=== PATIENT | male | born 1955 | race Caucasian/White ===

== ENCOUNTER → 2016-10-22 | Outpatient (CLI) | payer OTHER ==
[~2016-10-22] MED LIST: ASPIRIN81 M2 PO; ATORVASTATIN CA10 MG PO; BENICAR PO; CALCIUM1 TAB.CHEW PO; ELIDEL100 GM TOP; HYTRIN PO; MULTI-VITAMIN1 EAC1 PO; NAFTIN45 G1 TOP; OMEPRAZOLE20 M1 PO; PROBIOTIC1 EAC1 PO; RELAFEN PO; SYNTHROID PO; TOBRADEX EYE DRO5 ML OP; VITAMIN D250000 UNIT PO; ZYRTEC10 M1 PO
--- NOTE | ~2016-10-22 | XA30 ---
[facility] A Service of [facility] [place] [facility] RADIOLOGY TEXT RESULTS PATIENT: FABIO BAZAN LOCATION: [facility] : 55 UNIT #: [id number] AGE: [address]: Saeed Villarreal MD SEX: M ORDER DR: [id number] [facility] [address]. [place], [place] [address] [id number] O MR#: [id number] Acc #: [id number] NAME: FABIO BAZAN. : 1955 SEX: M STUDY DATE/TIME: 10/22/2016 13:12 UNIT: [facility] ROOM: STUDY DESCRIPTION: XA Arthrocentesis Major Joint Attending Physician: Saeed Villarreal M.D. Referring Physician: Saeed Villarreal M.D. Ordering Physician: Saeed Villarreal M.D. Primary Care Physician: Todd Almanza D.O. MEDICAL IMAGING REPORT This report is preliminary unless electronic signature is present EXAM Bilateral hip injection with fluoroscopic guidance. HISTORY Bilateral arthritis. Chronic hip pain. Significant pain relief with steroids in the past. TECHNIQUE Procedure was explained to the patient including risks, benefits, and complications. Informed consent was obtained and a formal time-out procedure was utilized. Using sterile technique and following local anesthesia with 1% Xylocaine, initially a 22-gauge spinal needle was placed into the right hip joint under fluoroscopic guidance. Intraarticular placement was confirmed with injection of 1-2 mL of Isovue. The joint was then injected with 80 mg of Depo-Medrol and 2.5 mL of bupivacaine. Attention was then directed to the left hip. After local anesthesia and with sterile technique, a 22-gauge spinal needle was placed into the left hip joint under fluoroscopic guidance. Intraarticular placement was confirmed with injection of 1-2 mL of Isovue. The joint was injected with 80 mg of Depo-Medrol and 2.5 mL of bupivacaine. 2 spot films were obtained. Total fluoroscopy time 0.5 minutes with a total dose of 7 mGy. The patient tolerated the procedure well. Postprocedural pain was 0 with preprocedural pain of 8 on a scale to 10. IMPRESSION Successful bilateral hip joint injection under fluoroscopic guidance. Dictated by... [facility] A Service of [facility] RADIOLOGY TEXT RESULTS PATIENT: FABIO BAZAN LOCATION: [facility] : 55 UNIT #: [id number] AGE: [address]: Saeed Villarreal MD SEX: M ORDER DR: Todd Sanchez M.D. THIS IS AN ELECTRONICALLY VERIFIED REPORT Todd Sanchez M.D. at 10/24/2016 9:39 PM XIANG/prachi TD: 10/22/2016 17:03 JOB #: [id number] MEDICAL IMAGING REPORT COPY
== END | disposition home or self-care (01) ==
LOC: CIVR 12:31
PROC: 3E0U33Z Introduction of Anti-inflammatory into Joints, Percutaneous Approach (ICD-10-PCS; principal; 2016-10-22)
PROC: 3E0U3BZ Introduction of Anesthetic Agent into Joints, Percutaneous Approach (ICD-10-PCS; 2016-10-22)
DX: M16.0 Bilateral primary osteoarthritis of hip (principal)
CPT/HCPCS: 77002; J1030; Q9966

== ENCOUNTER → 2017-02-23 | Outpatient (CLI) | payer OTHER ==
--- NOTE | ~2017-02-23 | XA30 ---
[facility] A Service of [facility] RADIOLOGY TEXT RESULTS PATIENT: FABIO BAZAN LOCATION: [facility] : 55 UNIT #: [id number] AGE: [address]: Saeed Villarreal MD SEX: M ORDER DR: [id number] [facility] [address]. [place], [place] [address] [id number] O MR#: [id number] Acc #: [id number] NAME: FABIO BAZAN. : 1955 SEX: M STUDY DATE/TIME: 02/23/2017 12:37 UNIT: [facility] ROOM: STUDY DESCRIPTION: XA Arthrocentesis Major Joint Attending Physician: Saeed Villarreal M.D. Referring Physician: Saeed Villarreal M.D. Ordering Physician: Saeed Villarreal M.D. Primary Care Physician: Todd Almanza D.O. MEDICAL IMAGING REPORT This report is preliminary unless electronic signature is present EXAM Bilateral hip steroid injection. INDICATIONS Bilateral hip osteoarthritis and pain. The fluoroscopy time was 0.7 minutes. 2 fluoroscopic images were taken. PROCEDURE The risks, benefits, and alternatives of the procedure discussed with the patient informed consent was obtained. In the procedure room a timeout was performed confirming correct patient and procedure. All elements of maximum sterile-barrier technique utilized according to guidelines appropriate for the procedure. TECHNIQUE/FINDINGS Skin overlying both hips was prepped and draped in the usual sterile fashion. 1% lidocaine utilized to anesthetize the skin and underlying subcutaneous tissues. Next under fluoroscopic guidance a 22-gauge needle was advanced into the right hip joint space. Small amount of contrast was injected confirming satisfactory positioning. 2 mL of 40 mg/mL followed by 2 mL of bupivacaine was injected in the hip joint space. A needle was removed and a sterile dressing was applied. No immediate complications. Next, attention was turned the left hip. A 22-gauge needle was advanced into the left hip joint space under fluoroscopic guidance and a small amount of test contrast was injected confirming satisfactory positioning. Next, 2 mL of 40 mg/mL DepoMedrol followed by a 2 mL of bupivacaine was injected into the hip joint space. Needle was removed and a sterile dressing was applied. No immediate complications. [facility] A Service of [facility] RADIOLOGY TEXT RESULTS PATIENT: FABIO BAZAN LOCATION: [facility] : 55 UNIT #: [id number] AGE: [address]: Saeed Villarreal MD SEX: M ORDER DR: IMPRESSION Technically successful bilateral hip steroid injections. Pre-procedure pain, 8 postprocedure pain 0. Dictated by... Tucker Reece M.D. THIS IS AN ELECTRONICALLY VERIFIED REPORT Tucker Reece M.D. at 02/25/2017 4:01 PM RIOS/aleksandrar TD: 02/24/2017 02:22 JOB #: [id number] MEDICAL IMAGING REPORT Page 1 of 1 COPY
== END | disposition home or self-care (01) ==
LOC: CIVR 11:56
DX: M16.0 Bilateral primary osteoarthritis of hip (principal)
CPT/HCPCS: 77002; J1030; Q9966